=== PATIENT | male | born 1985 | race African-American/Black ===

== ENCOUNTER 2017-05-16 18:41 | Emergency (ER) | payer MEDICAID ==
[~2017-05-16] VITALS: Ht 165.1 cm; Wt 92.5 kg
[2017-05-16 20:42] LABS: BASOPHILS % 1.1 % (0.0-2.0); EOSINOPHILS % 2.2 % (0.0-5.0); HEMATOCRIT. 43.5 % (42.0-52.0); HEMOGLOBIN. 15.2 g/dL (14.0-18.0); LYMPHOCYTES % 50.2 % (20.0-50.0); MEAN CORPUSCULAR VOLUME 86.1 fL (80.0-94.0); MONOCYTES % 7.1 % (2.0-8.0); NEUTROPHILS % 39.4 % (40.0-76.0); PLATELET 280 x1000/uL (130-400); RED BLOOD CELL COUNT 5.05 mill/uL (4.7-6.1)
[2017-05-16 20:44] LABS: CHLORIDE 109 mEq/L (98-107)
[2017-05-16 20:46] LABS: PROTHROMBIN TIME 10.4 sec (9.4-11.6)
[2017-05-16] MEDS ORDERED: FAMOTIDINE 20MG/2ML VIAL IV STA (21:38)
[2017-05-16] MEDS ORDERED: SODIUM CHLORIDE 0.9% 1,000 ML IV ONE (21:38)
[2017-05-16] MEDS ORDERED: ONDANSETRON HCL 4MG/2ML VIAL IV STA (21:38)
[2017-05-16 23:00] LABS: CLARITY URINE CLEAR (CLEAR); COLOR URINE YELLOW (YELLOW); KETONES URINE NEGATIVE (NEGATIVE); LEUKOCYTE ESTERASE URINE NEGATIVE (NEGATIVE); NITRITE URINE NEGATIVE (NEGATIVE); OCCULT BLOOD URINE NEGATIVE (NEGATIVE); PH URINE 7.5 (4.5-8.0); PROTEIN URINE NEGATIVE (NEGATIVE); SPECIFIC GRAVITY URINE 1.027 (1.005-1.030)
[2017-05-17 03:15] VITALS: BP 98/65
== END 2017-05-17 03:15 | disposition home or self-care (01) ==
LOC: ER 20:59
DX: R10.30 Lower abdominal pain, unspecified (principal)
CPT/HCPCS: 36415; 80053; 81003; 83690; 85025; 85610; 96361; 96374; 96375; 99284; J2405; J3490; J7030

== ENCOUNTER 2020-08-18 02:06 | Emergency (ER) | payer SELFPAY ==
[~2020-08-18] VITALS: Ht 165.1 cm; Wt 93.0 kg
[2020-08-18] MEDS ORDERED: SODIUM CHLORIDE 0.9% 1,000 ML IV ONE (04:30)
[2020-08-18 05:19] LABS: CHLORIDE 107 mEq/L (98-107)
[2020-08-18 05:36] LABS: BASOPHILS % 0.9 % (0.0-2.0); EOSINOPHILS % 2.1 % (0.0-5.0); HEMATOCRIT. 44.6 % (42.0-52.0); HEMOGLOBIN. 14.8 g/dL (14.0-18.0); LYMPHOCYTES % 54.6 % (20.0-50.0); MEAN CORPUSCULAR HEMOGLOBIN 29.4 pg (28.0-32.0); MEAN CORPUSCULAR VOLUME 88.7 fL (80.0-94.0); MEAN PLATELET VOLUME 8.4 fl (7.4-10.4); MONOCYTES % 7.1 % (2.0-8.0); NEUTROPHILS % 35.3 % (40.0-76.0); PLATELET 273 x1000/uL (130-400); RED BLOOD CELL COUNT 5.03 mill/uL (4.7-6.1); RED CELL DISTRIBUTION WIDTH 13.6 % (11.6-14.6)
[2020-08-18] MEDS ORDERED: IOHEXOL-350 100 ML BOTTLE ONE (06:43)
[2020-08-18 09:18] VITALS: BP 112/62
[2020-08-18] MEDS ORDERED: TOPUD PO (09:18)
== END 2020-08-18 09:30 | disposition home or self-care (01) ==
LOC: ER 02:06
DX: R07.89 Other chest pain (principal); M79.661 Pain in right lower leg; Z90.49 Acquired absence of other specified parts of digestive tract; Z88.6 Allergy status to analgesic agent
CPT/HCPCS: 36415; 71045; 71275; 80053; 84484; 85025; 85379; 93005; 93971; 96360; 96361; 99285; J7030; Q9967; Z7610

== ENCOUNTER 2021-04-02 08:22 | Emergency (ER) | payer MEDICAID ==
[~2021-04-02] VITALS: Ht 165.1 cm; Wt 95.0 kg
[~2021-04-02 08:22] MED LIST: TOPUD PO
[2021-04-02 08:33] VITALS: BP 120/83
[2021-04-02] MEDS ORDERED: ACETAMINOPHEN 325MG TABLET PO ONE (09:00)
== END 2021-04-02 10:09 | disposition home or self-care (01) ==
LOC: ER 08:22
DX: R51.9 Headache, unspecified (principal); Z88.6 Allergy status to analgesic agent; Z98.890 Other specified postprocedural states
CPT/HCPCS: 99282; Z7610

== ENCOUNTER 2021-07-15 21:21 | Emergency (ER) | payer MEDICAID ==
[~2021-07-15] VITALS: Ht 165.1 cm; Wt 98.0 kg
[2021-07-15 21:36] VITALS: BP 120/73
[2021-07-16] MEDS ORDERED: CEPH500C2 MT (00:57)
[2021-07-16] MEDS ORDERED: HYDR453.4 TP (00:57)
== END 2021-07-16 01:43 | disposition home or self-care (01) ==
LOC: ER 21:21
DX: R21 Rash and other nonspecific skin eruption (principal); J45.909 Unspecified asthma, uncomplicated; E11.9 Type 2 diabetes mellitus without complications; I10 Essential (primary) hypertension; Z88.6 Allergy status to analgesic agent; Z98.890 Other specified postprocedural states
CPT/HCPCS: 99283

== ENCOUNTER 2021-07-21 22:04 | Emergency (ER) | payer MEDICAID ==
[~2021-07-21] VITALS: Ht 165.1 cm; Wt 100.9 kg
[~2021-07-21 22:04] MED LIST changes: +CEPH500C2 MT; +HYDR453.4 TP
[2021-07-21 23:31] VITALS: BP 115/73
[2021-07-22] MEDS ORDERED: ACETAMINOPHEN 325MG TABLET PO ONE (00:15)
[2021-07-22] MEDS ORDERED: TOPUD MT (01:38)
== END 2021-07-22 02:25 | disposition home or self-care (01) ==
LOC: ER 22:04
DX: M25.512 Pain in left shoulder (principal); M25.522 Pain in left elbow; M25.532 Pain in left wrist; M79.642 Pain in left hand; E11.9 Type 2 diabetes mellitus without complications; J45.909 Unspecified asthma, uncomplicated; G43.909 Migraine, unspecified, not intractable, without status migrainosus; Y04.8XXA Assault by other bodily force, initial encounter; W01.0XXA Fall on same level from slipping, tripping and stumbling without subsequent striking against object, initial encounter; Y93.89 Activity, other specified; Y92.9 Unspecified place or not applicable; Z88.6 Allergy status to analgesic agent; Z98.890 Other specified postprocedural states
CPT/HCPCS: 29125; 73030; 73080; 73110; 73130; 99284

== ENCOUNTER 2021-12-19 19:19 | Emergency (ER) | payer MEDICAID ==
[~2021-12-19] VITALS: Ht 167.6 cm; Wt 104.5 kg
[~2021-12-19 19:19] MED LIST changes: +TOPUD MT
[2021-12-19] MEDS ORDERED: CARBAMAZEPINE 100MG TABLET CHEW PO ONE (23:45)
[2021-12-20] MEDS ORDERED: CARB200T MT (01:08)
[2021-12-20 01:21] VITALS: BP 121/78
== END 2021-12-20 01:22 | disposition home or self-care (01) ==
LOC: ER 19:19
DX: R51.9 Headache, unspecified (principal); J45.909 Unspecified asthma, uncomplicated; Z90.49 Acquired absence of other specified parts of digestive tract; Z79.899 Other long term (current) drug therapy
CPT/HCPCS: 99284